=== PATIENT | female | born 1955 | race Caucasian/White ===

== ENCOUNTER 2017-07-02 17:33 | Emergency (ER) | payer OTHER ==
[~2017-07-02] VITALS: Ht 167.6 cm; Wt 83.9 kg
[2017-07-02 21:42] LABS: BASOPHIL % 0.8 % (0-2); PLATELET COUNT 190 x10^3mcL (130-400); RED CELL DISTRIBUTION WIDTH 13.1 % (11.5-14.5)
[2017-07-02 21:59] LABS: CALCIUM 8.8 mg/dL (8.5-10.1); CARBON DIOXIDE 25.5 mmol/L (21-32); CHLORIDE SERUM 102 mmol/L (98-107); CREATININE SERUM 0.9 mg/dL (0.6-1.0); GFR1 > 60 mL/min; GLUCOSE SERUM 108 mg/dL (74-106); POTASSIUM SERUM 3.6 mmol/L (3.5-5.1); SODIUM SERUM 135 mmol/L (136-145)
[2017-07-02 22:03] LABS: ALBUMIN 3.8 g/dL (3.4-5.0); ALKALINE PHOSPHATASE 110 U/L (46-116); ALT/SGPT 82 U/L (14-59); BILIRUBIN TOTAL 0.36 mg/dL (0.20-1.00); LIPASE 235 IU/L (73-393); TOTAL PROTEIN, SERUM 7.4 g/dL (6.4-8.2)
[2017-07-02 22:17] LABS: AST/SGOT 45 U/L (15-37)
[2017-07-02 22:28] VITALS: BP 129/78
== END 2017-07-02 22:28 | disposition home or self-care (01) ==
LOC: ED 17:33
PROVIDERS: Emergency Medicine
DX: R10.31 Right lower quadrant pain (principal); R10.32 Left lower quadrant pain
CPT/HCPCS: 36415; J1885

== ENCOUNTER 2020-06-11 08:12 | Emergency (ER) | payer OTHER ==
[~2020-06-11] VITALS: Ht 165.1 cm; Wt 83.5 kg
[2020-06-11 08:22] VITALS: Ht 165.1 cm; Wt 83.5 kg
[2020-06-11 10:23] VITALS: BP 128/77
== END 2020-06-11 10:23 | disposition home or self-care (01) ==
LOC: ED 08:12
DX: S16.1XXA Strain of muscle, fascia and tendon at neck level, initial encounter (principal); S43.402A Unspecified sprain of left shoulder joint, initial encounter; W01.0XXA Fall on same level from slipping, tripping and stumbling without subsequent striking against object, initial encounter; Y93.E5 Activity, floor mopping and cleaning; Y92.89 Other specified places as the place of occurrence of the external cause; Y99.8 Other external cause status